=== PATIENT | female | born 1985 | race African-American/Black ===

== ENCOUNTER 2018-10-28 07:42 | Inpatient (IN) | payer OTHER ==
[~2018-10-28] VITALS: Ht 165.1 cm; Wt 84.8 kg
[2018-10-28] MEDS ORDERED: AMPICILLIN 2,000 MG in SODIUM CHLORIDE 0.9% 100 ML IV SCH (08:30)
[2018-10-28] MEDS: LACTATED RINGERS 1,000 ML IV SCH ×3 (08:52→14:23)
[2018-10-28] MEDS: BETAMETHASONE ACET/BETAMET 30 MG/5 ML VIAL IM SCH (08:52)
[2018-10-28] MEDS ORDERED: AZITHROMYCIN 500 MG in DEXT 5% WATER 250 ML IV SCH (09:00)
[2018-10-28 09:03] LABS: BASOPHILS % 0.4 % (0.0-2.0); EOSINOPHILS % 0.8 % (0.0-5.0); HEMATOCRIT. 35.1 % (36.0-48.0); MEAN CORPUSCULAR HEMOGLOBIN 29.8 pg (28.0-32.0); MEAN CORPUSCULAR VOLUME 87.2 fL (81.0-99.0); MEAN PLATELET VOLUME 10.2 fl (7.4-10.4); MONOCYTES % 8.8 % (2.0-8.0); PLATELET 154 x1000/uL (130-400); RED BLOOD CELL COUNT 4.02 mill/uL (4.2-5.4); RED CELL DISTRIBUTION WIDTH 14.5 % (11.6-14.6)
[2018-10-28 09:16] LABS: INR 0.9; PARTIAL THROMBOPLASTIN TIME 27.8 sec (23.4-31.0); PROTHROMBIN TIME 9.5 sec (9.1-11.1)
[2018-10-28 09:55] LABS: CLARITY URINE CLOUDY (CLEAR); COLOR URINE RED (YELLOW); KETONES URINE NEGATIVE (NEGATIVE); LEUKOCYTE ESTERASE URINE 2+ (NEGATIVE); NITRITE URINE NEGATIVE (NEGATIVE); OCCULT BLOOD URINE 3+ (NEGATIVE); PROTEIN URINE 2+ (NEGATIVE); SPECIFIC GRAVITY URINE 1.009 (1.005-1.030); UROBILINOGEN URINE 0.2 E.U./dL (0.2-1.0)
[2018-10-28] MEDS: MAGNESIUM 20 G PREMIX (L & D) 500 ML IV SCH (10:05)
[2018-10-28 10:13] LABS: *AMPHETAMINES SCREEN URINE NEGATIVE (NEGATIVE); *BARBITURATES SCREEN URINE NEGATIVE (NEGATIVE); *COCAINE SCREEN URINE NEGATIVE (NEGATIVE); CANNABINOID URINE SCREEN NEGATIVE (NEGATIVE); OPIATES URINE SCREEN NEGATIVE (NEGATIVE); PHENCYCLIDINE URINE SCREEN NEGATIVE (NEGATIVE)
[2018-10-28 10:14] LABS: *BENZODIAZEPINES SCREEN URINE NEGATIVE (NEGATIVE)
[2018-10-28] MEDS ORDERED: KETOROLAC 30MG/ML VIAL IV SCH (10:15)
[2018-10-28] MEDS ORDERED: ACETAMINOPHEN 650MG SUPP PR NR (10:15)
[2018-10-28] MEDS ORDERED: ACETAMINOPHEN 650MG SUPP PR PRN (10:15)
[2018-10-28 10:17] LABS: METHADONE URINE SCREEN NEGATIVE (NEGATIVE)
[2018-10-28] MEDS: PANTOPRAZOLE SODIUM 40 MG/VIAL IV SCH (13:28)
[2018-10-28] MEDS ORDERED: DEXTROSE 50% WATER 50ML SYRINGE IV PRN (13:30)
[2018-10-28] MEDS: BLOOD SUGAR DIAGNOSTIC STRIP TEST SCH ×2 (13:50→16:49)
[2018-10-28 14:03] LABS: HEPATITIS B SURFACE ANTIGEN NEGATIVE
[2018-10-28] MEDS ORDERED: AMPICILLIN 1,000 MG in SODIUM CHLORIDE 0.9% 50 ML IV SCH (14:30)
[2018-10-28] MEDS: AMPICILLIN 1,000 MG in SODIUM CHLORIDE 0.9% 50 ML IV SCH (16:53)
[2018-10-28] MEDS ORDERED: KETOROLAC 30MG/ML VIAL IV PRN (18:00)
[2018-10-28] MEDS: INSULIN LISPRO 100 UNITS/ML SUBCUT PRN (20:40)
[2018-10-29] MEDS: AMPICILLIN 1,000 MG in SODIUM CHLORIDE 0.9% 50 ML IV SCH ×4 (00:03→23:26)
[2018-10-29] MEDS: LACTATED RINGERS 1,000 ML IV SCH (03:00)
[2018-10-29] MEDS: INSULIN LISPRO 100 UNITS/ML SUBCUT PRN ×4 (07:53→22:00)
[2018-10-29] MEDS ORDERED: AZITHROMYCIN 500 MG in SODIUM CHLORIDE 0.9% 250 ML IV SCH (09:00)
[2018-10-29] MEDS: AZITHROMYCIN 500 MG TABLET PO SCH (09:22)
[2018-10-29] MEDS: PANTOPRAZOLE SODIUM 40 MG/VIAL IV SCH (12:17)
[2018-10-29] MEDS: BETAMETHASONE ACET/BETAMET 30 MG/5 ML VIAL IM SCH (12:23)
[2018-10-29] MEDS: MAGNESIUM 20 G PREMIX (L & D) 500 ML IV SCH (16:17)
[2018-10-29] MEDS: BLOOD SUGAR DIAGNOSTIC STRIP TEST SCH (22:55)
[2018-10-30] MEDS: LACTATED RINGERS 1,000 ML IV SCH ×2 (02:57→15:40)
[2018-10-30] MEDS: MAGNESIUM 20 G PREMIX (L & D) 500 ML IV SCH (02:59)
[2018-10-30] MEDS: AMPICILLIN 1,000 MG in SODIUM CHLORIDE 0.9% 50 ML IV SCH ×3 (05:51→18:19)
[2018-10-30] MEDS ORDERED: MAGNESIUM 20 G PREMIX (L & D) 500 ML IV SCH (06:49)
[2018-10-30] MEDS: INSULIN LISPRO 100 UNITS/ML SUBCUT PRN ×2 (08:03→11:55)
[2018-10-30] MEDS: AZITHROMYCIN 500 MG TABLET PO SCH (08:42)
[2018-10-30] MEDS: PANTOPRAZOLE SODIUM 40 MG/VIAL IV SCH (12:59)
[2018-10-30] MEDS: ACETAMINOPHEN 325MG TABLET PO PRN (19:54)
[2018-10-31] MEDS: LACTATED RINGERS 1,000 ML IV SCH ×4 (01:14→23:32)
[2018-10-31] MEDS: ACETAMINOPHEN 325MG TABLET PO PRN ×2 (06:43→20:49)
[2018-10-31] MEDS: AZITHROMYCIN 500 MG TABLET PO SCH (09:05)
[2018-10-31] MEDS: AMOXICILLIN 250MG CAPSULE PO SCH ×2 (09:06→18:08)
[2018-10-31] MEDS: PRENATAL VIT/FE FUMARATE/FA TABLET PO SCH (09:06)
[2018-10-31] MEDS: PANTOPRAZOLE SODIUM 40 MG/VIAL IV SCH (14:20)
[2018-11-01] MEDS: LACTATED RINGERS 1,000 ML IV SCH (00:56)
[2018-11-01] MEDS ORDERED: PORACTANT ALFA 240MG/3ML VIAL INH NR (02:30)
[2018-11-01] MEDS ORDERED: DEXT 5%/LR + PITOCIN 20UNITS/L 1,000 ML IV SCH (03:02)
[2018-11-01] MEDS ORDERED: BISACODYL 10MG SUPP PR PRN (03:15)
[2018-11-01] MEDS ORDERED: HYDROMORPHONE HCL/PF 2MG/ML CPJ IM PRN (03:15)
[2018-11-01] MEDS ORDERED: IBUPROFEN 400MG TABLET PO PRN (03:15)
[2018-11-01] MEDS ORDERED: KETOROLAC 30MG/ML VIAL IV NR (03:15)
[2018-11-01] MEDS ORDERED: ONDANSETRON HCL 4MG/2ML INJ IV PRN ×2 (03:15→03:30)
[2018-11-01] MEDS ORDERED: KETOROLAC 30MG/ML VIAL IV PRN ×2 (03:30→13:30)
[2018-11-01] MEDS ORDERED: LABETALOL 5MG/ML SYR 20 MG/4 ML SYRINGE IV PRN (03:30)
[2018-11-01] MEDS ORDERED: MEPERIDINE HCL/PF 25MG/ML CPJ IV PRN (03:30)
[2018-11-01] MEDS: HYDROMORPHONE HCL/PF 2MG/ML CPJ IV PRN ×2 (04:51→05:30)
[2018-11-01 06:00] VITALS: BP 113/70
[2018-11-01] MEDS: AMPICILLIN 2,000 MG in SODIUM CHLORIDE 0.9% 100 ML IV SCH ×2 (06:12→18:28)
[2018-11-01 06:30] VITALS: BP 110/66
[2018-11-01] MEDS ORDERED: GENTAMICIN 120MG PREMIX 100 ML IV NR (08:00)
[2018-11-01] MEDS: GENTAMICIN 120MG PREMIX 100 ML IV SCH (08:30)
[2018-11-01] MEDS ORDERED: PRENATAL VIT/FE FUMARATE/FA TABLET PO SCH (09:00)
[2018-11-01 10:00] VITALS: BP 113/70
[2018-11-01] MEDS: PRENATAL VIT/FE FUMARATE/FA TABLET PO SCH (10:11)
[2018-11-01 12:12] LABS: HEMATOCRIT. 31.5 % (36.0-48.0); HEMOGLOBIN. 10.4 g/dL (12.0-16.0); MEAN PLATELET VOLUME 9.4 fl (7.4-10.4); PLATELET 165 x1000/uL (130-400); RED BLOOD CELL COUNT 3.58 mill/uL (4.2-5.4); RED CELL DISTRIBUTION WIDTH 14.5 % (11.6-14.6)
[2018-11-01 12:21] LABS: CHLORIDE 107 mEq/L (98-107)
[2018-11-01] MEDS: SIMETHICONE 80MG TABLET CHEW PO SCH ×3 (13:00→16:43)
[2018-11-01] MEDS: KETOROLAC 30MG/ML VIAL IV PRN (14:24)
[2018-11-01 16:00] VITALS: BP 116/66
[2018-11-01] MEDS: DIPHENHYDRAMINE 25MG CAPSULE PO PRN ×2 (16:04→20:58)
[2018-11-01 20:00] VITALS: BP 121/79
[2018-11-01] MEDS: DOCUSATE SODIUM 100MG CAPSULE PO SCH (20:58)
[2018-11-01 21:07] LABS: PLATELET ESTIMATE NORMAL
[2018-11-01] MEDS: ACETAMINOPHEN 325MG TABLET PO PRN (22:53)
[2018-11-02] VITALS: BP 128/81
[2018-11-02 01:00] VITALS: BP 112/66
[2018-11-02] MEDS: HYDROCODONE/ACETAMINOPHEN 5/325MG TABLET PO PRN ×5 (01:12→23:05)
[2018-11-02] MEDS: AMPICILLIN 2,000 MG in SODIUM CHLORIDE 0.9% 100 ML IV SCH ×4 (01:14→19:00)
[2018-11-02] MEDS: DIPHENHYDRAMINE 25MG CAPSULE PO PRN ×2 (03:24→20:47)
[2018-11-02 04:00] VITALS: BP 113/65
[2018-11-02 08:00] VITALS: BP 123/83
[2018-11-02] MEDS: GENTAMICIN 120MG PREMIX 100 ML IV SCH ×2 (08:30→21:01)
[2018-11-02] MEDS: SIMETHICONE 80MG TABLET CHEW PO SCH ×3 (09:01→17:00)
[2018-11-02] MEDS: PRENATAL VIT/FE FUMARATE/FA TABLET PO SCH (09:04)
[2018-11-02] MEDS: IBUPROFEN 800MG TABLET PO PRN ×2 (09:05→20:58)
[2018-11-02 11:04] LABS: HEMOGLOBIN. 10.1 g/dL (12.0-16.0); MEAN CORPUSCULAR HEMOGLOBIN 29.1 pg (28.0-32.0); MEAN CORPUSCULAR VOLUME 86.5 fL (81.0-99.0); MEAN PLATELET VOLUME 9.6 fl (7.4-10.4); PLATELET 160 x1000/uL (130-400); RED BLOOD CELL COUNT 3.47 mill/uL (4.2-5.4); RED CELL DISTRIBUTION WIDTH 14.7 % (11.6-14.6)
[2018-11-02] MEDS: ACETAMINOPHEN 325MG TABLET PO PRN ×2 (12:12→17:12)
[2018-11-02 14:37] LABS: PLATELET ESTIMATE NORMAL
[2018-11-02 20:00] VITALS: BP 121/79
[2018-11-02] MEDS: DOCUSATE SODIUM 100MG CAPSULE PO SCH (21:00)
[2018-11-02] MEDS ORDERED: CAFFEINE 200MG TABLET PO SCH (21:30)
[2018-11-03] MEDS ORDERED: SODIUM CHLORIDE 0.45% 250 ML IV SCH (01:23)
[2018-11-03] MEDS: AMPICILLIN 2,000 MG in SODIUM CHLORIDE 0.9% 100 ML IV SCH ×5 (01:33→17:45)
[2018-11-03] MEDS: ACETAMINOPHEN 325MG TABLET PO PRN ×2 (02:10→20:49)
[2018-11-03 04:00] VITALS: BP 111/79
[2018-11-03] MEDS: HYDROCODONE/ACETAMINOPHEN 5/325MG TABLET PO PRN ×2 (04:51→14:35)
[2018-11-03] MEDS: CAFFEINE 200MG TABLET PO SCH ×6 (06:51→21:21)
[2018-11-03 08:00] VITALS: BP 118/69
[2018-11-03] MEDS: PRENATAL VIT/FE FUMARATE/FA TABLET PO SCH (08:53)
[2018-11-03] MEDS: IBUPROFEN 800MG TABLET PO PRN ×3 (08:53→21:42)
[2018-11-03] MEDS: GENTAMICIN 120MG PREMIX 100 ML IV SCH ×2 (08:53→22:33)
[2018-11-03] MEDS: SIMETHICONE 80MG TABLET CHEW PO SCH ×6 (08:54→20:48)
[2018-11-03 12:00] VITALS: BP 112/66
[2018-11-03 12:50] LABS: HEMOGLOBIN. 9.9 g/dL (12.0-16.0); MEAN CORPUSCULAR HEMOGLOBIN 29.5 pg (28.0-32.0); MEAN CORPUSCULAR VOLUME 86.2 fL (81.0-99.0); MEAN PLATELET VOLUME 9.7 fl (7.4-10.4); PLATELET 177 x1000/uL (130-400); RED BLOOD CELL COUNT 3.37 mill/uL (4.2-5.4); RED CELL DISTRIBUTION WIDTH 14.7 % (11.6-14.6)
[2018-11-03] MEDS ORDERED: ACETAMINOPHEN WITH CODEINE 300/30MG TABLET PO PRN ×2 (15:45→16:30)
[2018-11-03 16:00] VITALS: BP 114/70
[2018-11-03] MEDS: LACTATED RINGERS 1,000 ML IV SCH (16:43)
[2018-11-03] MEDS ORDERED: THEOPHYLLINE ANHYDROUS 80 MG/15 ML 120ML PO SCH (17:00)
[2018-11-03 20:00] VITALS: BP 126/75
[2018-11-03] MEDS: DIPHENHYDRAMINE 25MG CAPSULE PO PRN (20:48)
[2018-11-03] MEDS: THEOPHYLLINE ANHYDROUS 80 MG/15 ML 120ML PO SCH (21:29)
[2018-11-03 23:57] VITALS: BP 104/59
[2018-11-04] MEDS: HYDROCODONE/ACETAMINOPHEN 5/325MG TABLET PO PRN ×2 (00:59→08:56)
[2018-11-04 02:00] LABS: PLATELET ESTIMATE NORMAL
[2018-11-04 04:00] VITALS: BP 98/51
[2018-11-04] MEDS: KETOROLAC 30MG/ML VIAL IV PRN (05:39)
[2018-11-04] MEDS: AMPICILLIN 2,000 MG in SODIUM CHLORIDE 0.9% 100 ML IV SCH ×3 (05:43)
[2018-11-04] MEDS: CAFFEINE 200MG TABLET PO SCH ×3 (05:52→11:52)
[2018-11-04] MEDS: THEOPHYLLINE ANHYDROUS 80 MG/15 ML 120ML PO SCH ×2 (06:01→12:41)
[2018-11-04] MEDS: LACTATED RINGERS 1,000 ML IV SCH (06:09)
[2018-11-04 08:00] VITALS: BP 117/74
[2018-11-04] MEDS: GENTAMICIN 120MG PREMIX 100 ML IV SCH (08:56)
[2018-11-04] MEDS: SIMETHICONE 80MG TABLET CHEW PO SCH (08:56)
[2018-11-04] MEDS: PRENATAL VIT/FE FUMARATE/FA TABLET PO SCH (08:56)
[2018-11-04] MEDS: IBUPROFEN 800MG TABLET PO PRN (11:52)
== END 2018-11-04 14:00 | disposition home or self-care (01) | DRG 786 ==
LOC: OBSVTOIN 07:42 → 8 EST LDRP 07:42 → 8 EST A/PP 11-01 06:00
PROVIDERS: ADMIT Obstetrics & Gynecology; ATTEND Obstetrics & Gynecology
PROC: 10D00Z0 Extraction of Products of Conception, High, Open Approach (ICD-10-PCS; principal; 2018-11-01)
DX: O42.912 Preterm premature rupture of membranes, unspecified as to length of time between rupture and onset of labor, second trimester (principal); O45.92 Premature separation of placenta, unspecified, second trimester; O24.429 Gestational diabetes mellitus in childbirth, unspecified control; O89.4 Spinal and epidural anesthesia-induced headache during the puerperium; D64.9 Anemia, unspecified; O90.81 Anemia of the puerperium; O32.2XX0 Maternal care for transverse and oblique lie, not applicable or unspecified; O32.1XX0 Maternal care for breech presentation, not applicable or unspecified; Z3A.27 27 weeks gestation of pregnancy; Z37.0 Single live birth
CPT/HCPCS: 36415; 76805; 76815; 80048; 80170; 80305; 82947; 82962; 83735; 86592; 86703; 86762; 86850; 86900; 87340; 88307; 99281; C9113; G0378; J0290; J0456; J0702; J1170; J1580; J1815; J1885; J3475; J7050; J7060; J7120; Q0163; A4315